=== PATIENT | female | born 1985 | race Caucasian/White ===

== ENCOUNTER 2018-04-09 15:20 | Emergency (ER) | payer SELFPAY ==
[2018-04-09] MEDS ORDERED: Bicillin LA 1.2 MILLION UNITS/2 ML SYRINGE ONE (15:45)
[2018-04-09] MEDS ORDERED: methylPREDNISolone Sod Succ/PF 125 MG/2 ML VIAL ONE (15:46)
== END 2018-04-09 16:20 | disposition home or self-care (01) ==
LOC: NAV ERS 15:20
DX: J02.9 Acute pharyngitis, unspecified (principal); Z71.6 Tobacco abuse counseling; F17.210 Nicotine dependence, cigarettes, uncomplicated
CPT/HCPCS: 96372; 99406; J0561; J2930